=== PATIENT | female | born 1945 | race Caucasian/White ===

== ENCOUNTER 2022-05-30 12:27 | Emergency (ER) | payer MEDICARE, SELFPAY ==
--- NOTE | ~2022-05-30 | XR_ITS ---
EXAMINATION: XR wrist LT min 3V DATE: 05/30/2022 12:56 INDICATION: Left wrist pain TECHNIQUE: Posteroanterior, ulnar deviation, oblique, and lateral views of the left wrist were obtain ed. COMPARISON: None available FINDINGS: The bones are osteopenic which limits the sensitivity for fracture however none is seen. 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 Wrist soft tissue s welling is present. IMPRESSION: 1. No acute osseous abnormality comments sensitivity limited by osteopenia.. Reviewed, dictated and finalized at location B. [employer]
[2022-05-30 12:41] VITALS: BP 152/89; PULSE 82; RESP 14; TEMP 37.1; O2SAT 95
--- NOTE | 2022-05-30 12:45 | ED.UPPEXIN ---
HPI - Extremity Injury (Upper) General Chief Complaint: Extremity Injury, Upper Stated Complaint: Fall Injury/Left Wrist Time Seen by Provider: 05/30/22 12:46 Source: patient Mode of arrival: ambulatory Limitations: no limitations History of Present Illness HPI narrative: Charlene is a 77-year-old female patient presenting to clinic today with complaints of ground level fall with left wrist pain on Thursday.. She reports she slipped in the mud and fell down on her left wrist. She has pain , swelling, and bruising over the radius. Related Data Home Medications Medication Instructions Recorded Confirmed aspirin 81 mg tablet 81 mg PO DAILY 05/30/22 05/30/22 metformin 500 mg tablet 500 mg 05/30/22 metoprolol tartrate 50 mg tablet 50 mg PO DAILY 05/30/22 05/30/22 simvastatin 40 mg tablet 40 mg PO DAILY 05/30/22 05/30/22 Allergies Allergy/AdvReac Type Severity Reaction Status Date / Time No Known Allergies Allergy Verified 05/30/22 12:48 Review of Systems Review of Systems: Pertinent positives per HPI. Patient denies any fever, chills, rash, headache, visual changes, dizziness, cough, runny nose, sore throat, shortness of breath, chest pain, palpitations, nausea, vomiting, diarrhea, constipation, abdominal pain, or any urinary issues. PMFSH Comments At the time of my signature, I reviewed and agree with the nursing past medical, surgical, social, and family history. There is no relevant family history pertinent to the patient complaint. Exam Narrative: General: Well-developed, well nourished, in no apparent distress Head: Normocephalic, atraumatic. Cardio: Regular rate and rhythm, s1 and s2 normal, no murmur appreciated. Resp: Clear to auscultation bilaterally, no rhonchi, rales, wheezing or rubs. Musculoskeletal: No deformity, swelling, old bruising, and tenderness to palpation over they left radius, pain with radial and ulnar deviation as well as extension and flexion of the left wrist, active range of motion slightly limited due to pain, muscle strength strong and equal, peripheral pulse strong, no cyanosis, normal gait and station Course Course Emergency Course: Portions of this record may have been created with voice recognition software. Level of Care: Express Care Visit Vital Signs Vital signs: Vital Signs Temperature 37.1 C 05/30/22 12:41 Pulse Rate 82 05/30/22 12:41 Respiratory Rate 14 05/30/22 12:41 Blood Pressure 152/89 H 05/30/22 12:41 Pulse Oximetry 95 05/30/22 12:41 Oxygen Delivery Room Air 05/30/22 12:41 Temperature 37.1 C 05/30/22 12:41 Pulse Rate 82 05/30/22 12:41 Respiratory Rate 14 05/30/22 12:41 Blood Pressure 152/89 H 05/30/22 12:41 Pulse Oximetry 95 05/30/22 12:41 Oxygen Delivery Room Air 05/30/22 12:41 Vital signs reviewed MDM - Extremity Injury (Upper) MDM Narrative Medical decision making narrative: At the time of visit patient is resting comfortably on the exam table. X-ray of the left wrist was performed and was negative in the clinic today. I suspect that she has a wrist sprain. Supportive measures were discussed with the patient and she voiced understanding of discharge instructions and agrees to treatment plan Differential Diagnosis Differential diagnosis: Likely sprain and strain of wrist and fracture of wrist Imaging Data Radiologist's impression: [place] [address] XRay Report Signed Patient: Charlene Schneider : 1945 MR#: [id number] Age/Sex: 77 / F Acct:[id number] Loc: [facility]? ? ADM Date: 05/30/22Attending Dr: Ordering Physician: Allen Faith APRN Date of Service: 05/30/22 Procedure(s): XR wrist LT min 3V Accession Number(s): [id number] cc: Saulo, Jerry Kline MD; Allen Faith APRN~ EXAMINATION: XR wrist LT min 3V DATE: 05/30/2022 12:56 INDICATION: Left wrist pain TECHNI
== END 2022-05-30 13:16 | disposition home or self-care (01) ==
PROVIDERS: Emergency Provider Nurse Practitioner Family; PCP Internal Medicine
DX: S63.502A Unspecified sprain of left wrist, initial encounter (principal); W01.0XXA Fall on same level from slipping, tripping and stumbling without subsequent striking against object, initial encounter; Z79.82 Long term (current) use of aspirin; S60.212A Contusion of left wrist, initial encounter
CPT/HCPCS: 73110; 99213; G0463

== ENCOUNTER 2022-09-24 10:18 | Emergency (ER) | payer MEDICARE, SELFPAY ==
--- NOTE | ~2022-09-24 | CT_ITS ---
EXAMINATION: CT brain wo con DATE: 09/24/2022 10:58 INDICATION: Head injury TECHNIQUE: Computed tomography (CT) of the head was performed without intravenous contrast. Sagittal and coronal reconstructions were performed. The mA was adjusted according to patient size. Iterative reconstruction technique was employed. The dose-length product was 681.00 mGy-cm. COMPARISON: None FINDINGS: No acute intracranial hemorrhage, acute infarction or abnormal extra axial fluid collection. There is moderate scattered white matter hypoattenuation consistent with chronic small vessel ischemic diseas e. Symmetric prominence of the sulci and ventricles consistent with mild age-appropriate diffuse cere bral volume loss. No mass/mass effect. Mild to moderate mucosal thickening throughout the paranasal s inuses. The orbits and mastoid air cells are normal. IMPRESSION: 1. No fracture or acute intracranial process. 2. Age-related changes including moderate diffuse volume loss and moderate scattered white matter hyp oattenuation consistent with chronic small vessel ischemic disease. Reviewed, dictated and finalized at location A. IMPRESSION: 1. No fracture or acute intracranial process. 2. Age-related changes including moderate diffuse volume loss and moderate scat tered white matter hypoattenuation consistent with chronic small vessel ischemi c disease.
[2022-09-24 10:19] VITALS: PULSE 86; RESP 16; TEMP 36.8; O2SAT 95
[2022-09-24 11:37] VITALS: BP 114/74; PULSE 77; RESP 22; O2SAT 94
[2022-09-24 12:07] VITALS: PULSE 86; RESP 18; O2SAT 96
--- NOTE | 2022-09-24 12:10 | ED.GENADULT ---
HPI - General Adult General Chief complaint: Fall Stated complaint: fall with head lac Time Seen by Provider: 09/24/22 10:24 History of Present Illness HPI narrative: Patient is a 77-year-old female who presents ER with fall. She is demented and cannot say how it occurred. She has a laceration to her posterior scalp. Patient is not on any blood thinning medication other than 81 mg aspirin. No change in vision or hearing. No headache. No nausea or vomiting. No additional complaints. Related Data Home Medications Medication Instructions Recorded Confirmed aspirin 81 mg tablet 81 mg PO DAILY 05/30/22 05/30/22 metformin 500 mg tablet 500 mg PO BID 05/30/22 05/30/22 metoprolol tartrate 50 mg tablet 50 mg PO DAILY 05/30/22 05/30/22 simvastatin 40 mg tablet 40 mg PO DAILY 05/30/22 05/30/22 Allergies Allergy/AdvReac Type Severity Reaction Status Date / Time No Known Allergies Allergy Verified 05/30/22 12:48 Review of Systems Review of Systems: ROS unobtainable: Yes unobtainable due to mental status Exam Narrative: GENERAL: Well-appearing, well-nourished, and in no acute distress. HEAD: Normocephalic, posterior scalp laceration left side 1.5 cm. EYES: PERRLA and EOMI. ENT: Nares clear, no rhinorrhea or epistaxis. Mucous membranes moist. NECK: Supple. CHEST: Clear to auscultation. No respiratory distress. HEART: Regular rate and rhythm. No murmur heard. Normal peripheral pulses. ABDOMEN: Soft, nontender, nondistended, normal active bowel sounds. EXTREMITIES: Normal range of motion. No edema. SKIN: Warm, dry, no rash. NEURO: No focal deficits. Alert and oriented x3. PSYCH: Normal mood and affect. Course Course Emergency Course: Imaging negative for bleed. Laceration repair. Discharge. Vital Signs Vital signs: Vital Signs Temperature 98.2 F 09/24/22 10:19 Pulse Rate 86 09/24/22 10:19 Respiratory Rate 16 09/24/22 10:19 Pulse Oximetry 95 09/24/22 10:19 Oxygen Delivery Room Air 09/24/22 10:19 Temperature 98.2 F 09/24/22 10:19 Pulse Rate 77 09/24/22 11:37 Respiratory Rate 22 H 09/24/22 11:37 Blood Pressure 114/74 09/24/22 11:37 Pulse Oximetry 94 09/24/22 11:37 Oxygen Delivery Room Air 09/24/22 10:19 Procedures Laceration Laceration 1: Date: 09/24/22 Time: 12:10 Site: scalp and other Size (cm): 1.5 Description: linear Depth: simple, single layer Pre-repair: irrigated ====== Skin Level ====== Skin layer closed with: pippa Number of sutures: 3 ====== Subcutaneous Layer ====== ====== Muscle Layer ====== ====== Tendon Layer ====== Medical Decision Making Vital Signs Vital Signs: Vital Signs Temperature 98.2 F 09/24/22 10:19 Pulse Rate 86 09/24/22 10:19 Respiratory Rate 16 09/24/22 10:19 Pulse Oximetry 95 09/24/22 10:19 Oxygen Delivery Room Air 09/24/22 10:19 Temperature 98.2 F 09/24/22 10:19 Pulse Rate 77 09/24/22 11:37 Respiratory Rate 22 H 09/24/22 11:37 Blood Pressure 114/74 09/24/22 11:37 Pulse Oximetry 94 09/24/22 11:37 Oxygen Delivery Room Air 09/24/22 10:19 Imaging Data Radiologist's impression: ITS Impressions Head CT 09/24/22 10:59 IMPRESSION: 1. No fracture or acute intracranial process. 2. Age-related changes including moderate diffuse volume loss and moderate scattered white matter hypoattenuation consistent with chronic small vessel ischemic disease. Discharge Plan Discharge Clinical Impression: Laceration of scalp Patient Disposition: Home, Self-Care Condition: Stable Instructions: Laceration (ED), Staple Care (ED) Additional Instructions: Remove your pippa in 5 to 7 days. Return the ER if you have fever over 100.4 ?F, you have new injury, or you have additional concerns. Prescriptions: No Action metformin 500 mg tablet 500 mg PO BID simvastatin 40 m
== END 2022-09-24 12:32 | disposition home or self-care (01) ==
PROVIDERS: Emergency Provider Emergency Medicine; PCP Internal Medicine
DX: S01.01XA Laceration without foreign body of scalp, initial encounter (principal); F03.90 Unspecified dementia, unspecified severity, without behavioral disturbance, psychotic disturbance, mood disturbance, and anxiety; Z79.84 Long term (current) use of oral hypoglycemic drugs; Z79.82 Long term (current) use of aspirin; W19.XXXA Unspecified fall, initial encounter
CPT/HCPCS: 12001; 70450; 99284

== ENCOUNTER 2024-01-25 20:48 | Emergency (ER) | payer MEDICARE, SELFPAY ==
--- NOTE | ~2024-01-25 | XR_ITS ---
Right Knee Technique: AP, lateral, and sunrise views were obtained. Clinical History: Status post fall Findings: No fracture or dislocation is seen. Osseous alignment is anatomic. Mild tricompartmental de generative changes are present. Soft tissues are unremarkable. No joint effusion is seen. Impression: No acute abnormality. Mild tricompartmental degenerative changes. Reviewed, dictated and finalized at [facility]. Impression: No acute abnormality. Mild tricompartmental degenerative changes.
[2024-01-25 20:51] VITALS: BP 123/71; PULSE 92; RESP 17; TEMP 36.5; O2SAT 97
--- NOTE | 2024-01-26 01:37 | PC.NURSE ---
pt continues to attempt to get into er through any open door. Pt verbalized I am leaving in that ambulance that brought me here. This rn orientated pt that there is no ambulance here for her. Pt has not been seen by a provider at this time.
[2024-01-26 02:00] VITALS: BP 120/73; PULSE 79; RESP 17; O2SAT 95
[2024-01-26 02:57] VITALS: BP 109/67; PULSE 76; RESP 17; O2SAT 95
--- NOTE | 2024-01-26 03:32 | ED.FALL ---
HPI - Fall General Chief Complaint: Fall Stated Complaint: fall to knee, no head injury, no loc, +thinners Time Seen by Provider: 01/26/24 02:20 History of Present Illness HPI Narrative: Patient is an 78-year-old female who presents to the emergency department this evening via EMS from her extended care facility after an unwitnessed while transferring from the wheelchair to her bed. Patient states that she landed onto her right knees and is currently denying any knee pain. Patient states that she did not hit her head and admits that she does not take any blood thinners. She is resting comfortably right now and has no additional symptoms or concerns. Related Data Home Medications Medication Instructions Recorded Confirmed aspirin 81 mg tablet 81 mg PO DAILY 05/30/22 05/30/22 metformin 500 mg tablet 500 mg PO BID 05/30/22 05/30/22 metoprolol tartrate 50 mg tablet 50 mg PO DAILY 05/30/22 05/30/22 simvastatin 40 mg tablet 40 mg PO DAILY 05/30/22 05/30/22 Allergies Allergy/AdvReac Type Severity Reaction Status Date / Time No Known Allergies Allergy Verified 01/25/24 20:55 Review of Systems Review of Systems: All systems are reviewed and are negative unless stated otherwise in the HPI. Exam Narrative: General: Alert, awake, afebrile, in no acute distress. HEENT: PERRL, no rhinorrhea, no post nasal drip, oropharynx clear. Cardiovascular: Regular rate and rhythm, no murmurs, rubs or gallops, no peripheral edema. Respiratory: Clear to auscultation bilaterally, no tachypnea, no wheezing, no rhonchi, no rubs, no respiratory distress. Abdomen: Soft, nontender, nondistended, no rebound, no guarding, no peritoneal signs. Musculoskeletal: No joint swelling or deformity noted along the right knee, patient is able to bend and extend her right knee without any difficulty or pain, negative anterior and posterior drawer test, negative varus/valgus stress tests. Skin: No rashes or petechia, no signs of infection. Neurological: Alert and oriented to person, place, and time. Follows all commands. No focal deficits, speech is clear and fluent. Course Vital Signs Vital signs: Vital Signs Temperature 97.7 F 01/25/24 20:51 Pulse Rate 92 01/25/24 20:51 Respiratory Rate 17 01/25/24 20:51 Blood Pressure 123/71 01/25/24 20:51 Pulse Oximetry 97 01/25/24 20:51 Oxygen Delivery Room Air 01/25/24 20:51 Temperature 97.7 F 01/25/24 20:51 Pulse Rate 76 01/26/24 02:57 Respiratory Rate 17 01/26/24 02:57 Blood Pressure 109/67 01/26/24 02:57 Pulse Oximetry 95 01/26/24 02:57 Oxygen Delivery Room Air 01/25/24 20:51 MDM - Fall MDM Narrative Medical decision making narrative: The patient was evaluated by myself in the emergency department. History is obtained from patient who is an independent historian and physical exam was performed. External medical records were reviewed at this time. Imaging studies obtained included a right knee x-ray which was independently interpreted by me revealing no acute process, which is pending final radiology interpretation. Differential diagnosis considerations include fractures, dislocation, ligamentous and/or meniscal injury. Comorbidities impacting this visit include none. I have evaluated and discussed social determinants of health with the patient that could potentially impact subsequent diagnosis and treatment plans. On repeat assessment of the patient, reevaluation revealed that the patient is doing well and is in no acute distress. Patient symptoms have remained stable since she arrived to our emergency department. Repeat vital signs were all reviewed and noted to be stable. Differential diagnosis and treatment plan were discussed with the patient at bedside. Patient agrees with discussion and after shared medical decision making agrees with discharge. All questions were answered to the patient's satisfaction. Patient will follow up with her PCP in 3-5 da
== END 2024-01-26 04:29 ==
PROVIDERS: Emergency Provider Emergency Medicine; PCP Internal Medicine
DX: S89.91XA Unspecified injury of right lower leg, initial encounter (principal); W19.XXXA Unspecified fall, initial encounter
CPT/HCPCS: 73564; 99283